=== PATIENT | male | born 1945 ===

== ENCOUNTER 2019-06-26 08:33 | Outpatient (CLI) | payer OTHER ==
[~2019-06-26 08:33] MED LIST: ASA81 MG PO; AVALIDE 150-12.1 TA1 PO; LIPITOR20 MG PO; SINGULAIR10 MG PO; TOPROL XL50 MG PO; ZEGERID 20 MG C1 CAP PO
== END 2019-06-26 08:34 | disposition home or self-care (01) ==
LOC: SONOGRAMA 08:33
DX: E04.2 Nontoxic multinodular goiter (principal)